=== PATIENT | female | born 1980 | race Caucasian/White ===

== ENCOUNTER 2018-12-07 11:35 | Day surgery (SDC) | payer MEDICAID ==
[2018-12-05 15:02] LABS: BASOPHILS % (AUTO) 0.6 % (0-1); EOSINOPHILS # (AUTO) 0.1 X10'3 (0-0.9); EOSINOPHILS % (AUTO) 2.2 % (0-6); LYMPHOCYTES # (AUTO) 1.6 X10'3 (1.1-4.8); LYMPHOCYTES % (AUTO) 32.4 % (21-51); MEAN CORPUSCULAR HEMOGLOBIN 30.9 PG (27.0-31.0); MEAN CORPUSCULAR VOLUME 93.7 FL (78-98); MEAN PLATELET VOLUME 6.7 FL (7.4-10.4); MONOCYTES # (AUTO) 0.3 X10'3 (0-0.9); MONOCYTES % (AUTO) 5.9 % (2-12); NEUTROPHILS # (AUTO) 2.9 X10'3 (1.8-7.7); NEUTROPHILS % (AUTO) 58.9 % (42-75); PRE OP HEMATOCRIT 37.1 % (35.0-45.0); PRE OP HEMOGLOBIN 12.2 g/dL (12.0-16.0); PRE OP PLATELET COUNT 214 X10'3 (140-440); RED BLOOD COUNT 3.96 X10'6 (4.20-5.60); RED CELL DISTRIBUTION WIDTH 16.8 % (11.5-14.5)
[2018-12-05 15:18] LABS: HCG SERUM QL NEGATIVE
[~2018-12-07] VITALS: Ht 177.8 cm; Wt 109.5 kg
[~2018-12-07 11:35] MED LIST: APIX5TAB3 PO; DESV50TA PO; FERR325T32 PO; HYDR-3717 PO; LAMO200T2 PO; LIT300C PO; NALT50TA PO; TRAZ150T78 PO; famotidine 20mg tablet PO ONE; ringers solution, lacted 1,000 ML IV SCH
[2018-12-07] MEDS ORDERED: ringers solution, lacted 1,000 ML IV SCH (12:12)
[2018-12-07] MEDS ORDERED: proCHLORperazine 10 MG/2 ml inj IV PRN (12:15)
[2018-12-07] MEDS ORDERED: ondansetron/PF 4mg/2ml inj IV PRN (12:15)
[2018-12-07] MEDS ORDERED: meperidine/PF 25mg/ml syringe IV PRN ×3 (12:15)
[2018-12-07] MEDS ORDERED: morphine 4 MG/ML inj SYRINge IV PRN ×2 (12:15)
[2018-12-07 12:19] VITALS: BP 125/84
[2018-12-07] MEDS ORDERED: dextrose 5%-lactated ringers 1,000 ML IV SCH (12:45)
--- NOTE | 2018-12-07 12:53 | NUR ---
PATIENT BS 66, PATIENT ASYMPTOMATIC DR. ESPINOSA MADE AWARE, BOLUS GIVEN OF D5 LR GIVEN ORDERED, WILL RE-CHEK BS WHEN BOLUS IS DONE
--- NOTE | 2018-12-07 13:45 | NUR ---
RE-CHECK BLOOD SUGAR 108
[2018-12-07] MEDS ORDERED: sevoflurane 250ml liquid IH ONE (14:24)
[2018-12-07] MEDS ORDERED: LIDOcaine 2% (20mg/ml) 5ml vial ONE (14:25)
[2018-12-07] MEDS ORDERED: propofol inj 20 ML IV ONE (14:25)
[2018-12-07] MEDS ORDERED: oxyCODONE/APAP 5-325mg tablet PO PRN ×2 (14:25)
[2018-12-07] MEDS ORDERED: midazolam 2 mg/2 ml injection ONE (14:25)
[2018-12-07] MEDS ORDERED: fentaNYL/PF 50MCG/1 ML 2ML syringe ONE ×2 (14:25→14:42)
[2018-12-07] MEDS ORDERED: ondansetron/PF 4mg/2ml inj ONE (14:45)
[2018-12-07] MEDS ORDERED: ketorolac trometh. 30mg/ml inj. ONE (14:46)
[2018-12-07] MEDS ORDERED: neomy sulf/bacitrac zn/polymixin b oint 14.2 gm tube TP ONE (14:59)
[2018-12-07 15:12] VITALS: BP 113/52
[2018-12-07 15:22] VITALS: BP 128/71
[2018-12-07 15:32] VITALS: BP 130/75
[2018-12-07 15:42] VITALS: BP 135/76
--- NOTE | 2018-12-07 15:45 | NUR ---
I HAVE REVIEWED D/C INSTRUCTIONS WITH PATIENT AND FAMILY AND THEY HAVE VERBALIZED UNDERSTANDING. PATIENT D/C HOME WITH ALL BELONGINGS AND FAMILY GAVE TRANSPORT HOME. BRITTANIE PAD CDI.
== END 2018-12-07 15:42 | disposition home or self-care (01) ==
LOC: PAS 11:35
PROVIDERS: ATTEND Obstetrics & Gynecology
DX: N92.0 Excessive and frequent menstruation with regular cycle (principal); N90.7 Vulvar cyst; F31.9 Bipolar disorder, unspecified; E66.01 Morbid (severe) obesity due to excess calories; Z68.34 Body mass index [BMI] 34.0-34.9, adult; Z98.890 Other specified postprocedural states; Z98.84 Bariatric surgery status; Z86.711 Personal history of pulmonary embolism; Z86.718 Personal history of other venous thrombosis and embolism; Z79.899 Other long term (current) drug therapy; Z98.51 Tubal ligation status
CPT/HCPCS: 10060; 36415; 58563; 82948; 84703; 85025; 86885; 86900; 86901; A4264; J1885; J2001; J2250; J2405; J2704; J3010; J7030; J7121; A4355; A4618; A6258; J7120